=== PATIENT | female | born 1950 | race Caucasian/White ===

== ENCOUNTER 2022-06-30 11:20 | Outpatient (REF) | payer OTHER, MEDICAID, SELFPAY ==
[2022-06-30 13:14] LABS: Anion Gap 14 (12-20); Blood Urea Nitrogen 29 mg/dL (9-16); Calcium 9.4 mg/dL (8.4-10.2); Carbon Dioxide 24 mmol/L (22-29); Chloride 107 mmol/L (96-108); Estimated Glomerular Filt Rate 49; Glucose Random 144 mg/dL (60-115); Potassium 4.4 mmol/L (3.3-5.1); Sodium 141 mmol/L (135-145); T4 Thyroxine 5.3 ug/dL (4.5-12.0); Thyroid Stimulating Hormone 1.36 uIU/mL (0.32-4.0); Vitamin D 25-OH Total 34.7 ng/mL (>30)
[2022-06-30 13:33] LABS: Folate > 20.0 ng/mL (> or = 4.0); Vitamin B12 421 pg/mL (200-900)
== END 2022-06-30 11:21 | disposition home or self-care (01) ==
LOC: HO.LAB 11:20
PROVIDERS: PCP Internal Medicine; Visit Provider Psychiatry & Neurology Neurology
DX: G44.209 Tension-type headache, unspecified, not intractable (principal)
CPT/HCPCS: 36415; 80048; 82306; 82607; 82746; 84436; 84443

== ENCOUNTER 2023-01-07 09:00 | Outpatient (RCR) | payer OTHER, SELFPAY | END 2023-06-08 17:00 | disposition home or self-care (01) | LOC: HO.WCC 09:00 | PROVIDERS: PCP Internal Medicine; Visit Provider Physician Assistant | DX: L97.412 Non-pressure chronic ulcer of right heel and midfoot with fat layer exposed (principal); L97.529 Non-pressure chronic ulcer of other part of left foot with unspecified severity; I69.351 Hemiplegia and hemiparesis following cerebral infarction affecting right dominant side; I10 Essential (primary) hypertension | CPT/HCPCS: 11042; 99214 ==